=== PATIENT | male | born 1985 | race Hispanic/Latino ===

== ENCOUNTER 2017-03-13 09:19 | Emergency (ER) | payer OTHER ==
[~2017-03-13] VITALS: Ht 167.6 cm; Wt 86.2 kg
[2017-03-13] MEDS ORDERED: LEVOTHYROXINE25 MCG PO (09:30)
[2017-03-13] MEDS ORDERED: AUGMENTIN 875-1 EACH PO (09:47)
[2017-03-14] MEDS ORDERED: VANCOMYCIN HCL1 GM IV (10:21)
[2017-03-14] MEDS ORDERED: IBUPROFEN800 MG PO (10:21)
[2017-03-14] MEDS ORDERED: NORCO 5-325 TA1 EACH PO (10:21)
[2017-03-14] MEDS ORDERED: ZYVOX600 MG PO (12:06)
== END 2017-03-13 10:15 | disposition home or self-care (01) ==
LOC: ED 09:19
DX: J32.9 Chronic sinusitis, unspecified (principal); E03.9 Hypothyroidism, unspecified; Z79.899 Other long term (current) drug therapy
CPT/HCPCS: 99283

== ENCOUNTER 2017-03-14 10:04 | Emergency (ER) | payer OTHER ==
[~2017-03-14] VITALS: Ht 167.6 cm; Wt 86.2 kg
[~2017-03-14 10:04] MED LIST: AUGMENTIN 875-1 EACH PO; LEVOTHYROXINE25 MCG PO
[2017-03-14] MEDS ORDERED: IBUPROFEN800 MG PO (10:21)
[2017-03-14] MEDS ORDERED: NORCO 5-325 TA1 EACH PO (10:21)
[2017-03-14] MEDS ORDERED: VANCOMYCIN HCL1 GM IV (10:21)
[2017-03-14] MEDS ORDERED: ZYVOX600 MG PO (12:06)
== END 2017-03-14 12:00 | disposition home or self-care (01) ==
LOC: ED 10:04
DX: L03.211 Cellulitis of face (principal); L02.01 Cutaneous abscess of face; E03.9 Hypothyroidism, unspecified; Z87.891 Personal history of nicotine dependence; Z98.890 Other specified postprocedural states; Z79.899 Other long term (current) drug therapy
CPT/HCPCS: 70486; 71010; 80053; 83605; 85025; 87040; 96361; 96374; 96375; 99284; J1170; J2405; J7030